=== PATIENT | female | born 1995 | race Caucasian/White ===

== ENCOUNTER 2025-04-15 18:21 | Observation (INO) | payer OTHER, SELFPAY ==
--- OUTSIDE RECORDS SUMMARY | 2025-04-15 18:14 | XMS_ITS | Clinical Summary ---
Author Organization [facility] Address [address] [place] [address] Care Team Providers Care Detention Sergeant Name Role Phone No, Physician Primary Care Provider [phone] Allergies No known active allergies Medications sertraline (ZOLOFT) 50 mg tablet TK 1 T PO QD IN THE GISELL 0 Active metroNIDAZOLE (METROGEL) 0.75 % vaginal gelIndications: Bacterial Vaginosis Apply vaginally every night for 5 nights. 70 g 1 Active Additional Information Patient not taking.Reported on 01/13/2022 triamcinolone (KENALOG) 0.5 % cream APPLY A THIN LAYER TO THE AFFECTED AREAS TWICE DAILY FOR 5 TO 7 DAYS 2 Active norethindrone-e .estradioL-iron (Lo Loestrin Fe) 1 mg-10 mcg (24)/10 mcg (2) tablet per tablet Take 1 tablet by mouth daily 28 tablet 3 Active Active Problems No known active problems Resolved Problems Problem Noted Date Diagnosed Date Resolved Date Vaginal delivery 08/19/2018 09/30/2018 Overview (08/22/2018): # ID: Afebrile. No signs/symptoms of infection. # Heme: EBL 350 mL. No symptoms acute blood loss anemia. ROSCOE: Last Hgb 12.6. s/p counseling may continue FeSO4 supplementation if desired and can continue PNV as well. # ASCUS/HPV+: for repeat Pap in 1 year # CV/Pulm: Vital signs stable, within normal limits. # GI/: Tolerating PO. Voiding spontaneously. # Pain: Controlled with above regimen. # DVT prophylaxis: Ambulating independently, TID. # MOC: Progestin-only pills # MOF: # Disposition: Desires discharge home today Supervision of other normal , antepartum 12/21/2017 09/30/2018 Overview (08/16/2018): IOL 08/19/2018 @ 2100 - ASCUS/HPV positive pap: Repeat in 1 yr given age -daily feso4 [x] 1hr GCT at 24-28wks 92 [x] Flu Shot 03/16/2018 [x] Tdap (27-36wks) 06/07/18 -AR [x] Genetic Screening: Declines [] Rhogam (if Rh neg): n/a O+ [x] GBS at 36 wks: NEGATIVE [x] [] control method: , Girl Immunizations Immunization Administration Dates Next Due Influenza, Quadrivalent, Fiorella l Culture-based MDCK, Antibiotic Free, Intramuscular 03/16/2018 Tdap 06/07/2018 Family History Medical History Relation Name Comments No Known Problems Father Heart disease Maternal Grandmother Stroke Maternal Grandmother No Known Problems Mother Depression Mother's Brother Diabetes Paternal Grandfather Diabetes Paternal Grandmother Relation Name Status Comments Father Maternal Grandmother Mother Mother's Brother Paternal Grandfather Paternal Grandmother Social History Tobacco Use Types Packs/Day Years Used Date Smoking Tobacco: Never Smokeless Tobacco: Never Alcohol Use Standard Drinks/Week Comments No 0 (1 standard drink = 0.6 oz pur e alcohol) Exercise Vital Sign Answer Date Recorde d On average, how many days pe r week do you engage in moderate to strenuous exercise (like a brisk walk)? 0 days 03/02/2020 On average, how many minutes do you engage in exercise at this level? 0 min 03/02/2020 Comments No Sex and Gender Information Value Date Recorded Sex Assigned at Not on file Legal Sex Female 9:44 AM CDT Gender Identity Female 01/19/2018 1:03 PM CDT Sexual Orientation Not on file Obstetrics History Para Term AB IAB SAB Ectopic Multiple Livin g Live Births 1 1 1 0 1 1 Date Outcome GA Total Labor Labor/2nd/3rd Weight Sex Type Anes PTL Marilee A1 A5 Name Clin 2018 Term 39w 4d 6h 07m 3h 38m/2h 25m/0h 04m 3.3 kg (7 lb 4.4 oz) F Vag-S pont Epidur al N Livin g 8 9 SIMPS ON,GI RLMIK YLA, Nixo n Tiff s, Irina Unger MD Complications:None Delivery Location:[facility] Main C ampus ([facility] 58LD) Last Filed Vital Signs Vital Sign Reading Time Taken Comments Blood Pressure 112/69 01/13/2022 12:48 PM CDT Pulse 70 03/02/2020 8:53 AM CDT Temperature 36.7 C (98.06 F) 08/22/2018 8:31 AM CDT Respiratory Rate 16 08/22/2018 8:31 AM CDT Oxygen Saturation 99% 08/22/2018 8:31 AM CDT Inhaled Oxygen Concentration - - Weight 66.4 kg (146 lb 6.4 oz) 01/13/2022 12:48 PM CDT Height 177.8 cm (5' 10) 01/13/2022 12:48 PM CDT Body Mass Index 21.01 01/13/2022 12:48 PM CDT Plan of Treatment Health Maintenance Due Date Last Done Comments Hepatitis C Screening 1996 Varicella Vaccines (1 of 2 - 13+ 2-dose series) 02/08/2009 Hepatitis B Screening 02/08/2014 Depression Screening 10/01/2019 09/30/2018 Cervical Cancer Screening 03/02/2021 03/02/2020 Regular Well Visit/Exam 18-64 03/02/2021, 02/10/2019 HPV Vaccines (1 - 3-dose SCD M series) 02/08/2023 Influenza Vaccine (#1) 2025 03/16/2018 DTaP/Tdap/Td Vaccine (2 - Td or Tdap) 06/07/2028 06/07/2018 Pneumococcal vaccine <65 Aged Out No longer eligible based on patient's age to complete this topic Procedures Procedure Name Priority Date/Time Associated Diagnosis Comments PAP WITH REFLEX TO HIGH RISK HPV Routine 03/02/2020 10:28 AM CDT Screening for cervical cancer from Last 3 Months or Most Recently Relevant to Health Maintenance Results * Pap with reflex to High Risk HPV (03/02/2020 10:28 AM CDT) CLINICAL INFORMATION: Oral contraceptives [facility] LMP 02/10/2020 [facility] Previous Pap ASCUS, +HPV 2018 [facility] Prev. Bx INFORMATION NOT PROVIDED [facility] SOURCE: Cervix, Endocervix [facility] Pap, specimen adequacy Satisfactory for evaluation. Endocervical/laura sformation zone component present. [facility] HPV interp Negative for intraepithelial lesion or malignancy. [facility] COMMENTS This Pap test has been evaluated with computer assisted technology. [facility] Territory Service Representative MEF, CT(ASCP) CT screening location: [place] [address] [place] [address] [facility] Review side splitter MMW, CT(ASCP) CT screening location: [place] [address] [address] [address] [facility] Comment [facility] Comment: EXPLANATORY NOTE: The Pap is a screening test for cervical cancer. It is not a diagnostic test and is subject to false negative and false positive results. It is most reliable when a satisfactory sample, regularly obtained, is submitted with relevant clinical findings and history, and when the Pap result is evaluated along with historic and current clinical information. Swab 03/02/2020 10:2 8 AM CDT 03/05/2020 7:56 AM CDT Lyn Evangelista NP LAB CYTOLOGY ORDERABLES Final Result [facility] [address] [place] [address] from Last 3 Months or Most Recently Relevant to Health Maintenance Insurance MEDICA [facility] Advance Directives For more information, please contact: [phone] * Full Code (Latest Code Status on File) Date Activated Date Inactivated Comments 08/20/2018 2:40 PM 08/22/2018 10:19 PM * Full Code Date Activated Date Inactivated Comments 08/19/2018 8:52 PM 08/20/2018 2:40 PM Full CPR in case of cardiopulmonary arrest Care Teams Detention Sergeant Relationship Specialty Start Date End Date No, Physician PCP - General 12/21/17
--- OUTSIDE RECORDS SUMMARY | 2025-04-15 18:14 | XMS_ITS | Clinical Summary ---
Author Organization [facility] Address [address] [place] [address] Care Team Providers Care Spring Former Machine Name Role Phone None, Physician Primary Care Provider Unavailabl e Source Comments [facility],non-owned Affiliates and Associated Physician Practices is amultiple site organization consisting of ambulatory clinics and hospital sitesin [place], [place], [place] and [place]. This disclosure is being madepursuant to the Care Everywhere program and may not contain all information available regarding this patient. Last updated 18.[facility] Social History Tobacco Use Types Packs/Day Years Used Date Smoking Tobacco: Never Assessed Comments Unknown Sex and Gender Information Value Date Recorded Sex Assigned at Not on file Legal Sex Female 2:59 PM CDT Gender Identity Not on file Sexual Orientation Not on file Plan of Treatment Health Maintenance Due Date Last Done Comments HIV SCREENING 02/08/2011 HEPATITIS C SCREENING 02/04/2014 DTAP/TDAP/TD VACCINES (1 - Tdap) 02/08/2015 HEPATITIS B VACCINE (1 of 3 - 19+ 3-dose series) 02/08/2015 PAP SMEAR 02/08/2017 HPV VACCINE (1 - 3-dose SCDM series) 02/08/2023 DEPRESSION SCREENING 06/01/2024 COVID-19 VACCINE (1 - 2023-2 5 season) 2025 INFLUENZA VACCINE (#1) 2025 03/16/2018 ZOSTER VACCINE (1 of 2) 02/08/2046 HIB VACCINE Aged Out No longer eligi ble based on patient's age to complete this topic MENINGOCOCCAL (Group B) VACC INE SHARED DECISION-MAKING Aged Out No longer eligibl e based on patient's age to complete this topic MENINGOCOCCAL GROUPS A/C/Y/W VACCINE Aged Out No longer eligible b ased on patient's age to complete this topic PNEUMOCOCCAL VACCINE Aged Out No long er eligible based on patient's age to complete this topic Insurance [facility] Care Teams Spring Former Machine Relationship Specialty Start Date End Date None, Physician [address] [place] [address] PCP - General 09/14/23
--- OUTSIDE RECORDS SUMMARY | 2025-04-15 18:14 | XMS_ITS | Clinical Summary ---
Author Organization [facility] Address [facility] [place] [address] Care Team Providers Care Teacher Industrial Arts Name Role Phone None, Provider Primary Care Provider Xin ble Encounters Date Type Department Care Team Description 03/14/2025 1:30 PM CDT - 03/14/2025 11:59 PM CDT Hospital Encounter [facility] Ultrasound [address] [place], [place] [id number] Laura Spears MD Discharge Disposition: Home or Self Care (Routine Discharge) 03/14/2025 Travel from Last 3 Months Social History Tobacco Use Types Packs/Day Years Used Date Smoking Tobacco: Never Assessed Comments Unknown Sex and Gender Information Value Date Recorded Sex Assigned at Female 02/16/2025 8:31 AM CDT Legal Sex Female 8:30 AM CDT Gender Identity Not on file Sexual Orientation Not on file Plan of Treatment Health Maintenance Due Date Last Done Comments Cervical Cancer Screening Pa p Smear (Age 21 to 29) Every 3 Years 1996 Cervical Cancer Screening 1996 Annual Physical 02/08/1999 Hepatitis C 02/08/2014 DTaP, Tdap and Td Vaccines ( 1 - Tdap) 02/08/2015 Hepatitis B Vaccines (1 of 3 - 19+ 3-dose series) 02/08/2015 HPV Vaccines (1 - 3-dose SCD M series) 02/08/2023 COVID-19 Vaccine ( - 2024-2 6 season) 2025 Influenza Adult (#1) 2025 Hepatitis A Vaccines Aged Out No long er eligible based on patient's age to complete this topic Meningococcal B Vaccine Aged Out No l onger eligible based on patient's age to complete this topic Meningococcal Vaccine Aged Out No shana satish eligible based on patient's age to complete this topic Pneumococcal Vaccine: Pediat rics (0 to 5 Years) and At-Risk Patients (6 to 49 Years) Aged Out No longer eligible b ased on patient's age to complete this topic RSV Immunizations Under 20 Months Aged Out No longer eligible based on patient's age to complete this topic Procedures Procedure Name Priority Date/Time Associated Diagnosis Comments US OB COMP >14WKS TA+TV Routine 03/14/2025 2:52 PM CDT Encounter for screening, unspecified ([facility]/HCC) from Last 3 Months Results * US OB COMP >14WKS TA+TV (03/14/2025 2:52 PM CDT) Anatomical Region Laterality Modality Abdomen Ultrasound 03/15/2025 3:47 PM CDT Impressions 03/15/2025 4:06 PM CDT IMPRESSION: 1. Single living intrauterine currently in variable presentation with a estimated gestational age of 21 weeks and 0 days by today's sonogram, relative to clinical dating of 20 weeks and 0 days. Estimated weight is at the 94th percentile. Findings may represent inaccurate clinical dating or evolving macrosomia. Correlate clinically. 2. All required structures are visualized without appreciable anomaly. 3. Anterior placenta without previa. Ordered By: LAURA SPEARS Interpreted By: Tony Rodríguez, 03/15/2025 3:47 PM Narrative 03/15/2025 4:06 PM CDT [facility] [address] [place] [address] EXAMINATION: US OB COMP >14WKS TA+TV INDICATIONS: Encounter for screening, unspecified ([facility]/HCC) COMPARISON: NONE TECHNIQUE: Second trimester obstetric transabdominal ultrasound imaging of the fetus. FINDINGS: Clinical datin weeks and 0 days. Single live intrauterine in variable presentation. Normal four-chamber view of the heart with normal cardiac motion and a heart rate of 161 beats per minute. The ventricular outflow tracts are visualized. The placenta is anterior and clear of the internal cervical os. Placenta-Cervix distance: 3.1 cm. The cervix measures approximately 4.5 cm in length and appears closed. Amniotic Fluid Maximum Vertical Pocket: 7.5 cm. No significant free fluid within the dependent pelvis. anatomic survey: The ventricles, thalami, cava, cisterna magna, nasolabial region, and spine are visualized. Normal situs. The diaphragm, kidneys, stomach, and urinary bladder are visualized. Normal three-vessel cord and cord insertion. Four extremities are present . The following measurements were obtained: BPD: 5.01 cm consistent with 21 weeks and 1 day. HC: 18.80 cm consistent with 21 weeks and 1 day. AC: 15.91 cm consistent with 21 weeks and 1 day. FL: 3.48 cm consistent with 21 weeks and 0 days. All growth parameters are above the 75th percentile and within 2 standard deviations of the mean. CI: 75.73. HC/AC: 1.18. FL/BPD: 69.41. FL/HC: 18.51. FL/AC: 21.87. Estimated weight is 394 +/- 58 grams. EFW percentile: 93.6 % Estimated gestational age by today's sonogram is 21 weeks and 0 days. Estimated date of confinement by this ultrasound examination is 07/25/2025 Procedure Note Tony Rodríguez MD - 03/15/[address] [address] EXAMINATION: US OB COMP >14WKS TA+TV INDICATIONS: Encounter for screening, unspecified ([facility]) COMPARISON: NONE TECHNIQUE: Second trimester obstetric transabdominal ultrasound imagingof the fetus. FINDINGS: Clinical datin weeks and 0 days. Single live intrauterine in variable presentation. Normal four-chamber view of the heart with normal cardiac motion jerry heart rate of 161 beats per minute. The ventricular outflow tracts are visualized. The placenta is anterior and clear of the internal cervical os. Placenta-Cervix distance: 3.1 cm. The cervix measures approximately 4.5 cm in length and appears closed. Amniotic Fluid Maximum Vertical Pocket: 7.5 cm. No significant free fluid within the dependent pelvis. anatomic survey: The ventricles, thalami, cava, cisterna magna, nasolabial region, andspine are visualized. Normal situs. The diaphragm, kidneys, stomach, and urinary bladder are visualized. Normal three-vessel cord and cord insertion. Four extremities are present . The following measurements were obtained: BPD: 5.01 cm consistent with 21 weeks and 1 day. HC: 18.80 cm consistent with 21 weeks and 1 day. AC: 15.91 cm consistent with 21 weeks and 1 day. FL: 3.48 cm consistent with 21 weeks and 0 days. All growth parameters are above the 75th percentile and within 2standard deviations of the mean. CI: 75.73. HC/AC: 1.18. FL/BPD: 69.41. FL/HC: 18.51. FL/AC: 21.87. Estimated weight is 394 +/- 58 grams. EFW percentile: 93.6 % Estimated gestational age by today's sonogram is 21 weeks and 0 days. Estimated date of confinement by this ultrasound examination is 07/25/2025 IMPRESSION: 1. Single living intrauterine currently in variablepresentation with a estimated gestational age of 21 weeks and 0 days bytoday's sonogram, relative to clinical dating of 20 weeks and 0 days.Estimated weight is at the 94th percentile. Findings may representinaccurate clinical dating or evolving macrosomia. Correlateclinically. 2. All required structures are visualized without appreciableanomaly. 3. Anterior placenta without previa. Ordered By: LAURA SPEARS Interpreted By: Tony Rodríguez, 03/15/2025 3:47 PM us Laura Spears MD ULTRASOUND Final Result from Last 3 Months Insurance MEDICA Care Teams Teacher Industrial Arts Relationship Specialty Start Date End Date None, Provider, PCP - General UNKNOWN PHYSICIAN SPECIALTY 03/14/25
[2025-04-15 18:43] VITALS: BP 109/69; PULSE 65
[2025-04-15 18:45] VITALS: BP 105/61; PULSE 64; BMI 23.3
--- NOTE | 2025-04-15 18:45 | OBADM ---
This patient, Kelvin Jimenez, admitted to the OB room OB Post 116 for observation. Patient/family oriented to hospital policies and general routines including ID bracelet, bed and alarms, visiting hours, pain management, procedures, bathroom and other care routines, personal items, smoking policy, room service/diet, and visiting hours. Patient/Family are encouraged to report perceived risks to care and to ask questions if they do not understand what they are told or what they should do.
[2025-04-15 19:00] VITALS: BP 104/61; PULSE 65
[2025-04-15 19:15] VITALS: BP 105/55; PULSE 62
--- NOTE | 2025-04-17 08:35 | PM.OBTRLD ---
OB - Triage/Final Diagnosis Visit Information Reason for evaluation: other (Status post fall) Comments/Additional reasons for admission: I have assessed the risk for this patient, Kelvin Jimenez, and determined that she would benefit from observation care.
== END 2025-04-15 19:10 | disposition home or self-care (01) ==
PROVIDERS: Admitting Provider Obstetrics & Gynecology Gynecology; Visit Provider Obstetrics & Gynecology Gynecology
DX: O99.891 Other specified diseases and conditions complicating pregnancy (principal); Z3A.25 25 weeks gestation of pregnancy; W19.XXXA Unspecified fall, initial encounter
CPT/HCPCS: G0378; G0379